=== PATIENT | male | born 1990 | race Caucasian/White ===

== ENCOUNTER 2017-02-10 04:49 | Emergency (ER) | payer BC ==
[2017-02-10 04:55] VITALS: BP 144/88
[2017-02-10] MEDS ORDERED: METHYLPREDNISOLONE INJ 125 MG/2 ML SDV IM ONE (05:09)
[2017-02-10] MEDS ORDERED: DIPHENHYDRAMINE HCL 25 MG CAPSULE PO ONE (05:09)
--- NOTE | 2017-02-10 05:10 | ER Document Report ---
ED Skin Rash/Insect Bite/Abscs - General Chief Complaint: Skin Problem Stated Complaint: POSSIBLE ALLERGIC REACTION Time Seen by Provider: 02/10/17 05:02 Mode of Arrival: Ambulatory Information source: Patient Notes: Patient is a 26-year-old male who presents to the ER today for swelling to the right eyelid that he woke up from sleep tonight around 3am with. Pt doesn't know if something bit him or not, denies pain at all. Admits to blurred vision, but mainly just because eyelid is swollen over visual field. TRAVEL OUTSIDE OF THE [place] IN LAST 30 DAYS: No - Related Data Allergies/Adverse Reactions: No Known Allergies Allergy (Verified 04/20/16 13:59) Past Medical History - General Information source: Patient - Social History Smoking Status: Unknown if Ever Smoked Family History: Reviewed & Not Pertinent Patient has suicidal ideation: No Patient has homicidal ideation: No Neurological Medical History: Reports: Hx Migraine Renal/ Medical History: Denies: Hx Peritoneal Dialysis GI Medical History: Reports: Hx Gastroesophageal Reflux Disease Skin Medical History: Denies Hx MRSA Psychiatric Medical History: Reports: Hx Depression Infectious Medical History: Denies: Hx MRSA - Immunizations Hx Diphtheria, Pertussis, Tetanus Vaccination: No Review of Systems - Review of Systems Constitutional: No symptoms reported EENT: See HPI Cardiovascular: No symptoms reported Respiratory: No symptoms reported Gastrointestinal: No symptoms reported Genitourinary: No symptoms reported Male Genitourinary: No symptoms reported Musculoskeletal: No symptoms reported Skin: No symptoms reported Hematologic/Lymphatic: No symptoms reported Neurological/Psychological: No symptoms reported Physical Exam - Vital signs Vitals: Temp Pulse Resp BP Pulse Ox 98.3 F 89 16 144/88 H 98 02/10/17 04:52 02/10/17 04:52 02/10/17 04:52 02/10/17 04:52 02/10/17 04:52 - Notes Notes: PHYSICAL EXAMINATION: GENERAL: Well-appearing and in no acute distress. HEAD: edema of the right upper eyelid, pt able to open eye manually without issue, normocephalic. EYES: no foreign body in eye, Pupils equal round and reactive to light, extraocular movements intact, sclera anicteric, conjunctiva are normal. NECK: Normal range of motion, supple without lymphadenopathy LUNGS: CTAB and equal. No wheezes rales or rhonchi. HEART: Regular rate and rhythm without murmurs EXTREMITIES: Normal range of motion, no pitting edema. No cyanosis. NEUROLOGICAL: Cranial nerves grossly intact. Normal sensory/motor exams. PSYCH: Normal mood, normal affect. SKIN: Warm, Dry, normal turgor, edema and mild erythema to upper eyelid of right eye, no tenderness, no fluctuance, no induration Course - Vital Signs Vital signs: Temp Pulse Resp BP Pulse Ox 98.3 F 89 16 144/88 H 98 02/10/17 04:52 02/10/17 04:52 02/10/17 04:52 02/10/17 04:52 02/10/17 04:52 Discharge - Discharge Clinical Impression: Swollen eyelid Qualifiers: Laterality: right Qualified Code(s): H02.843 - Edema of right eye, unspecified eyelid Condition: Stable Disposition: HOME, SELF-CARE Additional Instructions: keep ice pack on eye. Return immediately for any new or worsening symptoms. Follow up with primary care provider, call tomorrow to make followup appointment. Prescriptions: Cetirizine HCl [Zyrtec 10 mg Tablet] 1 tab PO DAILY #10 tablet Forms: Return to Work
== END 2017-02-10 05:44 | disposition home or self-care (01) ==
LOC: ER 04:49
DX: H02.843 Edema of right eye, unspecified eyelid (principal)
CPT/HCPCS: 99282; 96372; J2930